=== PATIENT | female | born 1990 | race African-American/Black ===

== ENCOUNTER 2017-09-06 13:39 | Emergency (ER) | payer SELFPAY ==
[~2017-09-06] VITALS: Ht 160 cm; Wt 100.0 kg
[2017-09-06 14:06] VITALS: Ht 160 cm; Wt 100.0 kg
[2017-09-06 15:31] LABS: APPEARANCE CLEAR (CLEAR); BILIRUBIN NEGATIVE (NEGATIVE); COLOR YELLOW (YELLOW); GLUCOSE NEGATIVE (NEGATIVE); KETONE NEGATIVE (NEGATIVE); NITRITE NEGATIVE (NEGATIVE); PROTEIN NEGATIVE (NEGATIVE); SPECIFIC GRAVITY 1.025 (1.005-1.020); UROBILINOGEN NORMAL (NORMAL)
[2017-09-06 15:32] LABS: BASOPHILS 0.3 % (0-2); EOSINOPHILS 2.8 % (0-7); HEMATOCRIT 40.4 % (36.0-48.0); HEMOGLOBIN 13.7 g/dL (12-16); IMMATURE GRANULOCYTES 0.2 % (0-5); LYMPHOCYTES 32.6 % (15-50); MCH 31.1 pg (26.0-34.0); MCHC 33.9 g/dL (31.0-37.0); MCV 91.6 fL (80.0-100.0); MEAN PLATELET VOLUME 10.2 fL (7.4-10.4); MONOCYTES 6.5 % (2-11); NEUTROPHILS 57.6 % (40-80); PLATELET COUNT 286 10x3/uL (130-400); RBC 4.41 10x6/uL (4.00-5.40)
[2017-09-06 15:33] LABS: EPITHELIAL CELLS 0-5 /hpf (0-5); WHITE CELLS - URINE 0-5 /hpf (0-5)
[2017-09-06 15:34] LABS: BACTERIA MODERATE /hpf (NONE SEEN)
[2017-09-06 15:37] LABS: ALBUMIN 3.8 g/dL (3.4-5.0); ANION GAP 12.6 mmol/L (8-16); BILIRUBIN - TOTAL 0.3 mg/dL (0.2-1.3); CALCIUM 8.9 mg/dL (8.5-10.1); CARBON DIOXIDE 25.4 mmol/L (21.0-32.0)
[2017-09-06 16:17] LABS: HCG SERUM NEGATIVE (NEGATIVE)
[2017-09-06] MEDS ORDERED: TORADOL10 MG PO (16:58)
[2017-09-06 17:34] VITALS: BP 135/92
== END 2017-09-06 17:35 | disposition home or self-care (01) ==
LOC: D.ER 13:39
PROVIDERS: Family Medicine
DX: N93.9 Abnormal uterine and vaginal bleeding, unspecified (principal); N94.6 Dysmenorrhea, unspecified

== ENCOUNTER → 2019-02-20 08:15 | Outpatient (CLI) | payer OTHER ==
[2017-09-06 14:06] VITALS: BMI 39.0
[~2019-02-20 08:15] MED LIST: TORADOL10 MG PO
== END | disposition home or self-care (01) ==
LOC: D.US 08:15
PROVIDERS: ATTEND Family Medicine
DX: N63.0 Unspecified lump in unspecified breast (principal)